=== PATIENT | female | born 1970 | race Two or more races ===

== ENCOUNTER 2022-06-30 18:05 | Emergency (ER) | payer OTHER ==
[~2022-06-30] VITALS: Ht 157.5 cm; Wt 63.5 kg
[2022-06-30] MEDS ORDERED: SYNTHROID88 MCG PO (18:16)
== END 2022-06-30 21:06 | disposition home or self-care (01) ==
LOC: ER 18:05
DX: R00.2 Palpitations (principal); E06.3 Autoimmune thyroiditis